=== PATIENT | female | born 1985 | race African-American/Black ===

== ENCOUNTER 2017-12-13 01:17 | Emergency (ER) | payer OTHER, SELFPAY ==
[2017-12-13 01:18] VITALS: BP 134/88; PULSE 106; RESP 17; TEMP 37.5; O2SAT 99; BMI 24.0
--- NOTE | 2017-12-13 01:29 | ED.RN ---
RETAINING ROOM CUTTER STATED THAT PATIENT DOES NOT NEED DRUG SCREEN.
--- NOTE | 2017-12-13 01:33 | RAD_ITS ---
STUDY: X-RAY - RIGHT HAND REASON FOR EXAM: Female, 32 years old. Right hand pain status post crush injury. TECHNIQUE: 3 view(s) of the hand. COMPARISON: None. FINDINGS: Normal radiocarpal articulation. Normal distal radioulnar joint. Normal visualized carpal bones. Normal carpal articulations Normal carpometacarpal articulation of the thumb. Normal second through fifth carpometacarpal joints. Normal metacarpi. Normal metacarpophalangeal joint of the thumb. Normal interphalangeal joint of the thumb. Normal proximal and distal phalanges of the thumb. Normal metacarpophalangeal joints of the second through fifth fingers. Normal proximal and distal interphalangeal joints of the second through fifth fingers. Normal phalanges of the second through fifth fingers. Mild dorsal soft tissue swelling of the hand. RAD/Hand Min 3 Views IMPRESSION: Dorsal soft tissue swelling with no underlying fracture or dislocation. Electronically Signed: Clemente Ang MD at 2:52 EDT Tel , Service support ,
[2017-12-13] MEDS: Ibuprofen 600 MG Tablet PO (01:46)
--- NOTE | 2017-12-13 01:59 | ED.DCSUM_ITS ---
- ER Visit Summary Date of Service: 12/13/17 Chief Complaint: Right hand injury History of Present Illness: The patient is a 32 F who is right-hand dominant. She reports that she got her right hand caught in a machine at work. States that she has a dull, aching pain that is 10 out of 10 with movement and 8 out of 10 at rest. She denies any paresthesias distally. Physical Examination: Vitals: Stable. Afebrile. General: Well-nourished and well-developed. Head: Normocephalic atraumatic. Neck: Supple, no lymphadenopathy. No JVD. Nontender. Cardiovascular: Regular rate and rhythm. No murmurs. Respiratory: No respiratory distress. Clear to auscultation bilaterally. Abdominal: Soft, nontender, nondistended, normal bowel sounds. No guarding, rebound, or peritoneal signs. Back: Nontender. Extremities: Soft tissue swelling and moderate tenderness palpation over the dorsum of her right third and fourth metacarpals. She is neurovascular intact distal to this. Skin: Normal color, no rash. Neurologic: Alert and oriented ?3. Cranial nerves II through XII are intact. Normal strength and sensation. Psych: Normal affect. Test Results: X-ray shows soft tissue swelling. No fracture. Emergency Department Course and Treatment: Patient was treated with ibuprofen. Treatment Plan: Patient will be discharged with instruction use ibuprofen and/ or Tylenol for pain. Follow-up with [facility] in 1 week for another exam. Return to the emergency department for any worsening symptoms. Disposition: To home in improved and stable condition. Impression: 1. Crush injury right hand. This note was generated with [employer] dictation software. It may contain incorrect words, spelling, and punctuation that were not noted in review of the chart prior to signing ED Disposition - Plan for ED Patient: Disposition: Home or Assisted Living Chief Complaint: Upper Extremity Injury Instructions: ED Contusion Hand Referrals: MAXINE GOODMAN [GROUP OF PHYSICIANS] - 1 Week
[2017-12-13 02:06] VITALS: RESP 18
== END 2017-12-13 02:07 | disposition home or self-care (01) ==
LOC: ED 01:57
PROVIDERS: Emergency Provider Emergency Medicine
DX: S67.21XA Crushing injury of right hand, initial encounter (principal); W31.9XXA Contact with unspecified machinery, initial encounter; Y93.9 Activity, unspecified; Y92.9 Unspecified place or not applicable; J45.909 Unspecified asthma, uncomplicated
CPT/HCPCS: 73130; 99283